=== PATIENT | female | born 1950 | race Caucasian/White ===

== ENCOUNTER → 2023-11-11 09:09 | Outpatient (REF) | payer MEDICARE, SELFPAY | LOC: DHCBS MAIN 09:09 | PROVIDERS: ATTENDING PHYSICIAN Internal Medicine Cardiovascular Disease; FAMILY PHYSICIAN Family Medicine | DX: H34.233 Retinal artery branch occlusion, bilateral (principal) | CPT/HCPCS: 93306 ==

== ENCOUNTER → 2024-08-19 09:19 | Outpatient (REF) | payer MEDICARE, SELFPAY | LOC: PAVMRI 09:19 | PROVIDERS: ATTENDING PHYSICIAN Orthopaedic Surgery; FAMILY PHYSICIAN Family Medicine | DX: M25.862 Other specified joint disorders, left knee (principal) | CPT/HCPCS: 73721 ==